=== PATIENT | male | born 1955 | race Caucasian/White ===

== ENCOUNTER 2022-07-29 22:18 | Inpatient (IN) ==
[2022-07-29] MEDS ORDERED: ONDANSETRON 4 MG/2 ML VIAL IV STA (22:52)
[2022-07-29] MEDS ORDERED: fentaNYL 100 MCG/2 ML VIAL IV STA (22:52)
[2022-07-29] MEDS ORDERED: SODIUM CHLORIDE 0.9% 1,000 ML IV STA (22:52)
[2022-07-29] MEDS ORDERED: PROMETHAZINE INJ 25 MG in SODIUM CHLORIDE 0.9% 50 ML IV STA (22:56)
[2022-07-29] MEDS ORDERED: PROMETHAZINE 25 MG/1 ML VIAL ONE (23:04)
[2022-07-29 23:58] LABS: Calcium 8.8 MG/DL (8.5-10.1); Osmolality,Calculated 286.3 MOS/KG (273-304); Potassium 4.1 MMOL/L (3.5-5.1)
[2022-07-30] MEDS: HYDROmorphone 1 MG/1 ML SYRINGE IV PRN ×5 (00:40→18:41)
[2022-07-30] MEDS: DEXTROSE 5% NACL 0.45% 1,000 ML IV SCH ×5 (00:41→18:40)
[2022-07-30 00:46] LABS: Basophils % 0.3 % (0.0-0.8); Eosinophils # 0.1 10*3/uL (0.0-0.87); Eosinophils % 0.8 % (0.00-10.9); Hematocrit 42.1 VOL% (42.0-52.0); Hemoglobin 13.4 GM/DL (14.0-18.0); Immature Granulocytes % 0.7 %; Immature Granulocytes Absolute 0.08 #; Lymphocytes % 9.3 % (21.2-54.2); Mean Corpuscular HGB Conc 31.8 GM/DL (32-36); Mean Corpuscular Volume 100.7 FL (87-102); Monocytes # 0.8 10*3/uL (0.11-0.8); Monocytes % 7.5 % (1.7-12.7); Neutrophils % 81.4 % (38.7-73.9); Platelet Count 185 T/CUMM (130-400); Red Blood Count 4.18 MC/CUMM (3.8-5.5); Red Cell Distribution Width 12.1 % (9.3-17.3); White Blood Count 11.03 T/CUMM (4-12)
[2022-07-30 07:01] LABS: INR 0.9; PT Patient Result 9.7 SECS (10.1-12.1); Partial Thromboplastin Time 24.8 SECS (23.7-32.9)
[2022-07-30] MEDS ORDERED: hydrALAZINE 20 MG/1 ML VIAL IV PRN (08:25)
[2022-07-30] MEDS ORDERED: MAGNESIUM SULF RIDER 2 GM/50 ML PREMIX IV ONE (08:26)
[2022-07-30] MEDS ORDERED: PHENOL 1.4% THROAT SPRAY 177 ML BOTTLE PO PRN (09:58)
[2022-07-30] MEDS: PANTOPRAZOLE 40 MG TABLET PO SCH (10:16)
[2022-07-30] MEDS: ONDANSETRON 4 MG/2 ML VIAL IV PRN ×2 (13:57→18:41)
[2022-07-30] MEDS: ENOXAPARIN 30 MG/0.3 ML SYRINGE SUBCUT SCH (17:23)
[2022-07-31] MEDS: HYDROmorphone 1 MG/1 ML SYRINGE IV PRN ×6 (00:09→22:03)
[2022-07-31] MEDS: DEXTROSE 5% NACL 0.45% 1,000 ML IV SCH ×3 (00:11→17:57)
[2022-07-31] MEDS: ONDANSETRON 4 MG/2 ML VIAL IV PRN ×5 (04:13→21:38)
[2022-07-31 06:54] LABS: Basophils % 0.3 % (0.0-0.8); Eosinophils # 0.1 10*3/uL (0.0-0.87); Eosinophils % 2.2 % (0.00-10.9); Hematocrit 40.5 VOL% (42.0-52.0); Hemoglobin 13.4 GM/DL (14.0-18.0); Immature Granulocytes % 0.3 %; Immature Granulocytes Absolute 0.02 #; Lymphocytes % 17.9 % (21.2-54.2); Mean Corpuscular HGB Conc 33.1 GM/DL (32-36); Mean Corpuscular Volume 98.3 FL (87-102); Mean Platelet Volume 11.1 FL (9.6-12.0); Monocytes # 0.9 10*3/uL (0.11-0.8); Monocytes % 15.6 % (1.7-12.7); Neutrophils % 63.7 % (38.7-73.9); Platelet Count 188 T/CUMM (130-400); Red Blood Count 4.12 MC/CUMM (3.8-5.5); Red Cell Distribution Width 12.4 % (9.3-17.3); White Blood Count 5.82 T/CUMM (4-12)
[2022-07-31 07:11] LABS: Calcium 8.7 MG/DL (8.5-10.1); Osmolality,Calculated 284.5 MOS/KG (273-304); Potassium 4.6 MMOL/L (3.5-5.1)
[2022-07-31 07:23] LABS: Band Neutrophils 5 % (0-10); Eosinophils 2 % (0-10); Lymphocytes 18 % (20-55); Platelet Estimate Adequate; Total Cells Counted 100
[2022-07-31] MEDS: PANTOPRAZOLE 40 MG TABLET PO SCH (13:16)
[2022-07-31] MEDS: ENOXAPARIN 30 MG/0.3 ML SYRINGE SUBCUT SCH (17:53)
[2022-08-01] MEDS: DEXTROSE 5% NACL 0.45% 1,000 ML IV SCH ×5 (01:53→23:10)
[2022-08-01] MEDS: ONDANSETRON 4 MG/2 ML VIAL IV PRN ×5 (02:16→20:47)
[2022-08-01] MEDS: HYDROmorphone 1 MG/1 ML SYRINGE IV PRN ×3 (02:17→10:59)
[2022-08-01 06:08] LABS: Basophils % 0.4 % (0.0-0.8); Eosinophils # 0.2 10*3/uL (0.0-0.87); Eosinophils % 2.6 % (0.00-10.9); Hemoglobin 13.5 GM/DL (14.0-18.0); Immature Granulocytes % 0.2 %; Immature Granulocytes Absolute 0.01 #; Lymphocytes % 17.5 % (21.2-54.2); Mean Corpuscular HGB Conc 32.9 GM/DL (32-36); Mean Corpuscular Volume 96.2 FL (87-102); Mean Platelet Volume 11.1 FL (9.6-12.0); Monocytes % 16.9 % (1.7-12.7); Neutrophils % 62.4 % (38.7-73.9); Platelet Count 220 T/CUMM (130-400); Red Blood Count 4.26 MC/CUMM (3.8-5.5); Red Cell Distribution Width 12.2 % (9.3-17.3); White Blood Count 5.67 T/CUMM (4-12)
[2022-08-01 06:27] LABS: Bilirubin,Total 1.2 MG/DL (0.20-1.00); Calcium 9.3 MG/DL (8.5-10.1); Osmolality,Calculated 287.5 MOS/KG (273-304); Potassium 3.6 MMOL/L (3.5-5.1); Total Protein 6.4 G/DL (6.4-8.2)
[2022-08-01 06:34] LABS: Band Neutrophils 2 % (0-10); Eosinophils 5 % (0-10); Lymphocytes 20 % (20-55); Platelet Estimate Adequate; Total Cells Counted 100
[2022-08-01] MEDS: PANTOPRAZOLE 40 MG VIAL IV SCH (09:53)
[2022-08-01] MEDS: PANTOPRAZOLE 40 MG TABLET PO SCH (10:21)
[2022-08-01] MEDS: ENOXAPARIN 30 MG/0.3 ML SYRINGE SUBCUT SCH (11:00)
[2022-08-01] MEDS ORDERED: LACTATED RINGERS 1,000 ML IV ONE (15:44)
[2022-08-01] MEDS ORDERED: KETOROLAC 30 MG/1 ML VIAL IV PRN (15:44)
[2022-08-02] MEDS: DEXTROSE 5% NACL 0.45% 1,000 ML IV SCH ×3 (03:36→11:17)
[2022-08-02 05:50] LABS: Basophils % 0.3 % (0.0-0.8); Eosinophils # 0.2 10*3/uL (0.0-0.87); Eosinophils % 3.1 % (0.00-10.9); Hematocrit 38.6 VOL% (42.0-52.0); Immature Granulocytes % 0.2 %; Immature Granulocytes Absolute 0.01 #; Lymphocytes # 1.5 10*3/uL (1.4-4.0); Lymphocytes % 24.3 % (21.2-54.2); Mean Corpuscular HGB Conc 33.7 GM/DL (32-36); Mean Corpuscular Volume 95.5 FL (87-102); Mean Platelet Volume 10.9 FL (9.6-12.0); Monocytes # 0.9 10*3/uL (0.11-0.8); Monocytes % 15.1 % (1.7-12.7); Platelet Count 198 T/CUMM (130-400); Red Blood Count 4.04 MC/CUMM (3.8-5.5); Red Cell Distribution Width 11.9 % (9.3-17.3); White Blood Count 6.08 T/CUMM (4-12)
[2022-08-02 06:12] LABS: Albumin 2.7 G/DL (3.4-5.0); Band Neutrophils 1 % (0-10); Bilirubin,Total 0.9 MG/DL (0.20-1.00); Eosinophils 3 % (0-10); Lymphocytes 26 % (20-55); Osmolality,Calculated 286.7 MOS/KG (273-304); Platelet Estimate Adequate; Potassium 3.1 MMOL/L (3.5-5.1); Total Cells Counted 100; Total Protein 6.1 G/DL (6.4-8.2)
[2022-08-02] MEDS: PANTOPRAZOLE 40 MG VIAL IV SCH (09:20)
[2022-08-02] MEDS: ONDANSETRON 4 MG/2 ML VIAL IV PRN (10:11)
[2022-08-02] MEDS: ENOXAPARIN 30 MG/0.3 ML SYRINGE SUBCUT SCH (10:11)
[2022-08-02] MEDS ORDERED: LACTATED RINGERS 1,000 ML IV ONE ×2 (10:48→15:28)
[2022-08-02] MEDS ORDERED: POTASSIUM CHLORIDE RIDER 10 MEQ/100 ML PREMIX IV ONE (11:34)
[2022-08-02] MEDS: LACTATED RINGERS 1,000 ML IV SCH ×2 (12:17→23:16)
[2022-08-02] MEDS ORDERED: LIDOCAINE 2% 5 ML VIAL ONE ×2 (13:39→15:32)
[2022-08-02] MEDS ORDERED: fentaNYL 100 MCG/2 ML VIAL ONE ×2 (13:39→15:32)
[2022-08-02] MEDS ORDERED: MIDAZOLAM 2 MG/2 ML VIAL ONE ×2 (13:39→15:33)
[2022-08-02] MEDS ORDERED: ROCURONIUM 50 MG/5 ML VIAL IV ONE ×2 (13:39→15:32)
[2022-08-02] MEDS ORDERED: propofoL 200 MG/20 ML VIAL IV ONE ×2 (13:39→15:32)
[2022-08-02] MEDS ORDERED: ALBUMIN 25% 25 GM/100 ML VIAL IV ONE (14:13)
[2022-08-02] MEDS ORDERED: DEXAMETHASONE 4 MG/1 ML VIAL ONE (14:23)
[2022-08-02] MEDS ORDERED: ONDANSETRON 4 MG/2 ML VIAL ONE (14:23)
[2022-08-02] MEDS ORDERED: KETAMINE 500 MG/10 ML VIAL ONE (15:22)
[2022-08-02] MEDS ORDERED: SODIUM CHLORIDE 0.9% 1,000 ML IV ONE (15:28)
[2022-08-02] MEDS ORDERED: SUGAMMADEX 200 MG/2 ML VIAL IV ONE (15:38)
[2022-08-02] MEDS ORDERED: SEVOFLURANE 1 UNIT/15 MINUTE INH ONE (15:47)
[2022-08-02] MEDS ORDERED: ONDANSETRON ODT 4 MG TABLET PO PRN (16:42)
[2022-08-02] MEDS ORDERED: GABAPENTIN 300 MG CAPSULE PO SCH (21:00)
[2022-08-02] MEDS: carvediloL 6.25 MG TABLET PO SCH (21:03)
[2022-08-03] MEDS: LACTATED RINGERS 1,000 ML IV SCH (05:03)
[2022-08-03 05:33] LABS: Basophils % 0.2 % (0.0-0.8); Eosinophils # 0.1 10*3/uL (0.0-0.87); Eosinophils % 1.8 % (0.00-10.9); Hematocrit 33.9 VOL% (42.0-52.0); Hemoglobin 11.5 GM/DL (14.0-18.0); Immature Granulocytes % 0.5 %; Immature Granulocytes Absolute 0.03 #; Lymphocytes # 1.2 10*3/uL (1.4-4.0); Lymphocytes % 19.5 % (21.2-54.2); Mean Corpuscular HGB Conc 33.9 GM/DL (32-36); Mean Platelet Volume 10.7 FL (9.6-12.0); Monocytes # 0.8 10*3/uL (0.11-0.8); Monocytes % 12.9 % (1.7-12.7); Neutrophils % 65.1 % (38.7-73.9); Platelet Count 179 T/CUMM (130-400); Red Blood Count 3.57 MC/CUMM (3.8-5.5); Red Cell Distribution Width 11.9 % (9.3-17.3); White Blood Count 6.14 T/CUMM (4-12)
[2022-08-03 05:58] LABS: Albumin 2.6 G/DL (3.4-5.0); Bilirubin,Total 0.8 MG/DL (0.20-1.00); Calcium 8.3 MG/DL (8.5-10.1); Osmolality,Calculated 288.3 MOS/KG (273-304); Potassium 3.3 MMOL/L (3.5-5.1); Total Protein 5.3 G/DL (6.4-8.2)
[2022-08-03] MEDS ORDERED: POTASSIUM CHLORIDE 20 MEQ TABLET PO PRN (07:01)
[2022-08-03 07:56] VITALS: BP 158/84
[2022-08-03] MEDS: PANTOPRAZOLE 40 MG VIAL IV SCH (08:19)
[2022-08-03] MEDS: carvediloL 6.25 MG TABLET PO SCH (08:19)
[2022-08-03] MEDS ORDERED: ESCITALOPRAM 10 MG TABLET PO SCH (09:00)
[2022-08-03] MEDS ORDERED: TAMSULOSIN 0.4 MG CAPSULE PO SCH (09:00)
== END 2022-08-03 10:07 | disposition home or self-care (01) | DRG 336 ==
LOC: EDUNIT# → EDBD → N.EDINP 22:18 → N.ED 22:18 → N.2W 07-30 → SUATTDRO 07-31 12:36 → N.3E 08-02 14:02
PROVIDERS: ADMIT Surgery; ATTEND Surgery